=== PATIENT | female | born 2000 | race Caucasian/White ===

== ENCOUNTER → 2020-12-02 | Outpatient (CLI) | payer OTHER ==
--- NOTE | 2020-12-02 23:39 | RAD ---
INDICATION: Reason: LEFT SIDED BACK PAIN WITH SCIATICA / Spl. Instructions: / History: COMPARISON: None. IMPRESSION: Lumbar spine: 3 views obtained. Mild retrolisthesis of L4 on 5. Early degenerative changes the spine with osteophyte formation at the vertebral body endplates as well as facet hypertrophy. No acute frac ture mild scoliotic curvature of the spine. Electronically signed by: Robin Cabrera MD (12/02/2020 11:37 PM) [id number]
== END ==
LOC: RAD 10:38
PROVIDERS: ATTEND Family Medicine
DX: M47.816 Spondylosis without myelopathy or radiculopathy, lumbar region (principal); M25.78 Osteophyte, vertebrae
CPT/HCPCS: 72100

== ENCOUNTER → 2021-01-02 | Outpatient (CLI) | payer OTHER ==
--- NOTE | 2021-01-02 16:02 | KCIC ---
MR LUMBAR SPINE WO [id number] Date: 01/02/2021 3:23 PM Indication: Acute Left sided back pain w/sciatica. LBP 1-1.5 months, LLE pain, no known recent injur y. Comparison: Lumbar spine radiograph 12/02/2020. Technique: Multi-planar multi-weighted magnetic resonance imaging of the lumbar spine was performed w ithout intravenous contrast using the standard lumbar spine protocol. FINDINGS: Straightening of the lumbar lordosis. No acute fracture. Degenerative disc desiccation and disc space height loss at L3-4, L4-5, and L5-S1. Fatty degenerative endplate changes at L4-5. The conus terminates at a normal level. No abnormal signal is seen within the visualized distal spina l cord. No clumping of intrathecal nerve roots. No soft tissue abnormality in the visualized abdomen or pelvis. T12-L1: No disc bulge. No facet arthropathy. No significant spinal stenosis or neural foraminal narro wing. L1-L2: No disc bulge. No facet arthropathy. No significant spinal stenosis or neural foraminal narrow ing. L2-L3: No disc bulge. No facet arthropathy. No significant spinal stenosis or neural foraminal narrow ing. L3-L4: Disc bulge with annular tear. No facet arthropathy. No significant spinal stenosis or neural f oraminal narrowing. L4-L5: Disc bulge with annular tear and large central and right paracentral protrusion. Prominent mary priyanka epidural fat. Severe narrowing of the thecal sac and lateral recesses. Mild bilateral neural fora imani narrowing. Mild facet arthropathy. L5-S1: Disc bulge. Moderate right and mild left facet arthropathy. Mild spinal canal stenosis and lef t lateral recess narrowing. Mild bilateral neural foraminal narrowing. IMPRESSION: Severe narrowing of the thecal sac and lateral recesses at L4-5 due to a large disc protrusion. Electronically signed by: Jarod Serrano MD (01/02/2021 3:59 PM) [id number]
== END ==
LOC: KCIC MRI 15:08
PROVIDERS: ATTEND Family Medicine
DX: M47.817 Spondylosis without myelopathy or radiculopathy, lumbosacral region (principal); M48.07 Spinal stenosis, lumbosacral region
CPT/HCPCS: 72148

== ENCOUNTER → 2021-02-01 | Outpatient (CLI) | payer OTHER ==
[~2021-02-01] MED LIST: ACET500T68 PO; DIPH25CA58 PO; DOCU-109 PO; HYDR-2761 PO; IBUP-1027 PO; LORA10TA3 PO; TIZA4TAB2 PO; VENL75TA PO
[2021-02-01 10:04] LABS: BASO % 1 % (0-3); EOS # 0.2 x10^3/uL (0.0-0.7); EOS % 3 % (0-3); HEMATOCRIT 41.4 % (36.0-47.0); HEMOGLOBIN 14.2 g/dL (12.0-15.5); LYMPH # 1.9 x10^3/uL (1.0-4.8); LYMPH % 32 % (24-48); MEAN CORPUSCULAR HEMOGLOBIN 32 pg (25-35); MEAN CORPUSCULAR HGB CONC 34 g/dL (31-37); MEAN CORPUSCULAR VOLUME 92 fL (79-100); MONO # 0.4 x10^3/uL (0.0-1.1); MONO % 6 % (0-9); NEUT # 3.4 x10^3/uL (1.8-7.7); NEUT % 58 % (31-73); PLATELET COUNT 335 x10^3/uL (140-400); RED BLOOD COUNT 4.51 x10^6/uL (3.50-5.40); WHITE BLOOD COUNT 5.9 x10^3/uL (4.0-11.0)
[2021-02-01 10:08] LABS: ALBUMIN/GLOBULIN RATIO 1.2 (1.0-1.7); CALCIUM 9.2 mg/dL (8.5-10.1); CREATININE 0.9 mg/dL (0.6-1.0); GFR 78.3; POTASSIUM 4.6 mmol/L (3.5-5.1); TOTAL BILIRUBIN 0.2 mg/dL (0.2-1.0); TOTAL PROTEIN 7.4 g/dL (6.4-8.2)
--- NOTE | 2021-02-05 20:18 | HP ---
ADMIT DATE: 02/01/2021 PREOP HISTORY AND PHYSICAL HISTORY OF PRESENT ILLNESS: The patient is a pleasant 20-year-old who is having difficulty with low back pain that radiates into her left posterior thigh to the knee. She said the pain can also radiate down her left leg as well. She notes pins and needles sensation in her left foot virtually all of the time. The problem started spontaneously about 2 months ago and was extremely severe. It has improved slightly since that time. Going from sitting to standing causes sharp pain for her. Standing too long, is painful. She says ice helps and changing positions also helps. Lying down gives her some relief. Her pain initially was 8-9/10 and now is a constant 3/10. Activity increases her pain level. She has had two Medrol Dosepak, which helped slightly. She tried physical therapy, which markedly increased her pain after one visit and she stopped. Weakness is not a problem for her. The numbness in her left foot is constant. There are no bowel or bladder issues. CURRENT MEDICATIONS: Tylenol, Benadryl, venlafaxine, tizanidine, ibuprofen. PAST MEDICAL HISTORY: No prior medical history. PAST SURGICAL HISTORY: No previous surgeries documented. FAMILY HISTORY: Diabetes, headaches. 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 Does not smoke. Drinks alcohol 1-2 times per month. ALLERGIES: No known drug allergies. REVIEW OF SYSTEMS: A 12-point review of systems was performed and is noncontributory except that mentioned above. PHYSICAL EXAMINATION: GENERAL: Alert, pleasant, in no acute distress. HEENT: Normocephalic, atraumatic. SKIN: Warm and dry. MUSCULOSKELETAL: Lumbar paraspinal muscle bulk is normal, restricted range of motion of the lumbar spine, mild tenderness of the lower lumbar spine with palpation, normal range of motion of the lower extremities bilaterally. EXTREMITIES: No clubbing, cyanosis or edema. NEUROLOGIC: Alert and oriented x3. Strength is 5/5 in the lower extremities. Sensory is intact in the lower extremities except for a diffuse decreased sensation involving her left foot, Reflexes were present and symmetric in the lower extremities bilaterally, positive straight leg raising on the left, negative straight leg raising on the right, normal gait. IMAGING: I reviewed a lumbar MRI scan from 01/02/2021. On that study, the principal abnormality is at L4-L5 where there was a very large central disk protrusion, which narrows the lateral recesses, right greater than left. ASSESSMENT AND PLAN: She has a very large disc protrusion with a left lumbar radiculopathy. At this point, I feel the most prudent course would be to operate and performed bilateral aggressive hemilaminotomy for disk removal. I did discuss this with her. I explained there was a risk of injury to the nerves for bowel and bladder and then I would do everything possible to avoid that problem. I feel that she has failed extensive conservative measures and based on the amount of stenosis related to the large disk herniation the most prudent thing would be to remove the disk. I discussed all aspects of the surgery with her. She understands. She would like to go ahead. We are going to make the arrangements. NILDA DR: Chantal TID: [id number]
== END ==
LOC: SURGPAT 09:00
PROVIDERS: ATTEND Neurological Surgery
DX: Z01.812 Encounter for preprocedural laboratory examination (principal); M51.16 Intervertebral disc disorders with radiculopathy, lumbar region
CPT/HCPCS: 36415; 80053; 85025; 87641

== ENCOUNTER 2021-02-06 07:16 | Day surgery (SDC) | payer OTHER ==
[2021-02-01 09:33] VITALS: BP 137/88
[~2021-02-06] VITALS: Ht 177.8 cm; Wt 95.6 kg
[~2021-02-06 07:16] MED LIST changes: +BUPIVACAINE-EPI 0.5%-1:200000 MPF 30 ML VIAL. ONE; +DEXAMETHASONE SOD PHOS 4 MG/ML VIAL ONE; -DOCU-109 PO; +GELATIN SPONGE SIZE 100. ONE; -HYDR-2761 PO; +HYDROmorphone 2 MG/ML VIAL IVP PRN; +IV RINGERS,LACTATED 1000ML 1,000 ML IV SCH; +KETOROLAC 60 MG/2 ML VIAL. ONE; +LIDOCAINE 2% PF 5 ML VIAL. ONE; +MORPHINE SULFATE 2 MG/ML INJ. IVP PRN; +ONDANSETRON PF 4 MG/2 ML VIAL. ONE; +PROCHLORPERAZINE 10 MG/2 ML VIAL. IVP PRN; +PROPOFOL 10 MG/ML (20ML) VIAL. IV ONE; +ROCURONIUM 50 MG/5 ML VIAL. ONE; +THROMBIN TOPICAL 20,000 UNIT SPRAY.SYRN KIT TP ONE; +fentaNYL PF VIAL 100 MCG/2 ML VIAL IVP PRN
[2021-02-06] MEDS ORDERED: SUCCINYLCHOLINE 200 MG/10 ML VIAL. ONE (08:15)
[2021-02-06] MEDS ORDERED: MIDAZOLAM HCL/PF 2 MG/2 ML VIAL. ONE (08:16)
[2021-02-06] MEDS ORDERED: fentaNYL PF VIAL 100 MCG/2 ML VIAL ONE (08:16)
[2021-02-06] MEDS ORDERED: REMIFENTANIL 2 MG VIAL. IV ONE (08:17)
--- NOTE | 2021-02-06 09:12 | HP ---
ADMIT DATE: 02/06/2021 PREOP HISTORY AND PHYSICAL HISTORY OF PRESENT ILLNESS: The patient is a pleasant 20-year-old who is having difficulty with low back pain that radiates into her left posterior thigh to the knee. She said the pain can also radiate down her left leg as well. She notes pins and needles sensation in her left foot virtually all of the time. The problem started spontaneously about 2 months ago and was extremely severe. It has improved slightly since that time. Going from sitting to standing causes sharp pain for her. Standing too long, is painful. She says ice helps and changing positions also helps. Lying down gives her some relief. Her pain initially was 8-9/10 and now is a constant 3/10. Activity increases her pain level. She has had two Medrol Dosepak, which helped slightly. She tried physical therapy, which markedly increased her pain after one visit and she stopped. Weakness is not a problem for her. The numbness in her left foot is constant. There are no bowel or bladder issues. CURRENT MEDICATIONS: Tylenol, Benadryl, venlafaxine, tizanidine, ibuprofen. PAST MEDICAL HISTORY: No prior medical history. PAST SURGICAL HISTORY: No previous surgeries documented. FAMILY HISTORY: Diabetes, headaches. 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 Does not smoke. Drinks alcohol 1-2 times per month. ALLERGIES: No known drug allergies. REVIEW OF SYSTEMS: A 12-point review of systems was performed and is noncontributory except that mentioned above. PHYSICAL EXAMINATION: GENERAL: Alert, pleasant, in no acute distress. HEENT: Normocephalic, atraumatic. SKIN: Warm and dry. MUSCULOSKELETAL: Lumbar paraspinal muscle bulk is normal, restricted range of motion of the lumbar spine, mild tenderness of the lower lumbar spine with palpation, normal range of motion of the lower extremities bilaterally. EXTREMITIES: No clubbing, cyanosis or edema. NEUROLOGIC: Alert and oriented x3. Strength is 5/5 in the lower extremities. Sensory is intact in the lower extremities except for a diffuse decreased sensation involving her left foot, Reflexes were present and symmetric in the lower extremities bilaterally, positive straight leg raising on the left, negative straight leg raising on the right, normal gait. IMAGING: I reviewed a lumbar MRI scan from 01/02/2021. On that study, the principal abnormality is at L4-L5 where there was a very large central disk protrusion, which narrows the lateral recesses, right greater than left. ASSESSMENT AND PLAN: She has a very large disc protrusion with a left lumbar radiculopathy. At this point, I feel the most prudent course would be to operate and performed bilateral aggressive hemilaminotomy for disk removal. I did discuss this with her. I explained there was a risk of injury to the nerves for bowel and bladder and then I would do everything possible to avoid that problem. I feel that she has failed extensive conservative measures and based on the amount of stenosis related to the large disk herniation the most prudent thing would be to remove the disk. I discussed all aspects of the surgery with her. She understands. She would like to go ahead. We are going to make the arrangements. NILDA DR: Chantal TID: [id number]
[2021-02-06] MEDS ORDERED: DESFLURANE > 120 MINUTES IH ONE (09:15)
[2021-02-06] MEDS ORDERED: PROPOFOL 50 ML IV ONE ×3 (10:17→11:08)
[2021-02-06] MEDS ORDERED: NEOSTIGMINE METHYLSULFATE 5 MG/5 ML SYRINGE. ONE (11:09)
[2021-02-06] MEDS ORDERED: GLYCOPYRROLATE 1 MG/5 ML VIAL. ONE (11:42)
[2021-02-06] MEDS ORDERED: HYDR-2761 PO (11:53)
[2021-02-06] MEDS ORDERED: DOCU-109 PO (11:53)
--- NOTE | 2021-02-06 11:57 | DISCH ---
DISCHARGE INSTRUCTIONS Condition on Discharge Condition on Discharge: Stable Activity After Discharge Activity Instructions for Disc: Activity as tolerated, Avoid exertion Other activity instructions: no driving for a week Bathing Instructions: Shower-keep dressing dry, No Tub Bath until see Lifting Instructions after Dis: No heavy lifting, No pulling or pushing, Do not lift >10 pounds Diet after Discharge Diet after Discharge: Regular Wound Incision Care Wound/Incision Care: Ice to area for comfort Other wound/incision instructi: may remove dressing in 48 hours if dry , no soaking Contacting the after DC Call your doctor for: Concerns you may have Follow-Up Follow up with: Dr. Gracia's nurse in 2 weeks [phone] LACHO GRACIA MD Feb 06, 2021 11:57
[2021-02-06] MEDS ORDERED: HYDROcodone/APAP 5/325MG 1 TAB TABLET PO ONE (12:45)
[2021-02-06 12:46] VITALS: BP 133/86
--- NOTE | 2021-02-06 13:00 | OP ---
DATE OF SURGERY: 02/06/2021 PREOPERATIVE DIAGNOSIS: Large herniated lumbar disc, L4-L5 with severe left lumbar radiculopathy. POSTOPERATIVE DIAGNOSIS: Large herniated lumbar disc, L4-L5 with severe left lumbar radiculopathy. OPERATION PERFORMED: Bilateral hemilaminotomies with decompression of dura and nerve root and microdiscectomies, L4-L5. The operation was done with EMG monitoring, SSEP monitoring, fluoroscopy, microscopic dissection. SPECIMEN: Disc and decompression. SURGEON: Jonny Harding M.D. BUCKLE ATTACHER: Nikki Starr APRN, assisted with the surgery. She assisted with the exposure, the discectomy as well as the closure. OPERATIVE INDICATIONS: The patient is a pleasant 20-year-old who developed severe intractable back and left leg pain, which was disabling for her. She tried physical therapy, which made her much worse. She did have two Medrol Dosepaks, which she said helped her a little bit. Weakness was not a problem. There was a constant numbness in her left foot. There were no bowel or bladder issues. On imaging studies, there was a large disc herniation at L4-L5, which was a central but did compress both sides. In fact, the right side slightly worse than the left. I recommended lumbar microsurgery. I spoke with her about the surgery, the risks, technique and expected postoperative course. I spoke about injury to the nerves for bowel and bladder control. I spoke with her about the risk of infection, the risk of anesthesia, she understood and she wished to go ahead. DESCRIPTION OF PROCEDURE: Following general endotracheal anesthesia, the patient was positioned prone on the Riaz table. Her lumbar region prepped and draped in the standard fashion. SORAYA hose and AV impulse boots were applied for DVT prophylaxis. The microscope was draped, fluoroscopy was draped and brought in the field and monitoring was established. Ancef 2 grams was given less than one hour prior to initiation of surgery. Using fluoroscopic guidance, an incision was made directly over the L4-L5 interspace. I dissected down through skin and subcutaneous tissue, reflected the paraspinal muscles and placed a [place] microdisk retractor. I brought in the microscope and the remainder of surgery done with microscope using microscopic technique. I burred down a generous hemilaminotomy with a high-speed air drill and then gently peeled down and trimmed from medial to lateral of the ligamentum flavum. Even using the drill, there was intermittent discharging of the L5 root as seen on the EMG. As I worked, I performed a partial foraminotomy and had a generous exposure of the dura and the exiting root. I gently passed the blunt hook beneath the root and gently retracted. Again, there was some firing. I entered into the disc space and I worked to perform discectomy and tried to tease back and remove disc material and as I worked, the nerve became much freer; however, was unable to remove any large fragments from this approach. We then removed multiple smaller fragments and had a generous amount of disc removed. I then went to the contralateral side with the same exposure. Interestingly, even though this site was asymptomatic, it was very irritable on the right side. I again peeled away thickened ligamentum flavum. I did again perform a partial foraminotomy. I gently retracted the root medially. The disc was much more apparent. I incised the ligament annulus as I done on the other side and teased back and removed first a large subligamentous disc fragment, which completely decompressed the region. I entered the disc space and removed further disc, which I also removed some of the more central disc material. As I worked, the region became very well decompressed. Following this then I explored carefully on this side and assured myself there were no retained fragments. Hemostasis was excellent. I irrigated with antibiotic solution and then removed the retractor from this. I went back to the left side, explored carefully and assured myself that the root was very free. There were no retained fragments. I irrigated copiously. I closed the wound in layers with absorbable suture. The skin was closed with 4-0 subcuticular stitch. I felt the surgery went very well. PEDRITO DR: Rupa TID: [id number] MEL
--- NOTE | 2021-02-08 18:23 | PATHOLOGY ---
[facility] Accession Number: [id number] . 01 Material submitted: . vertebral column - LUMBAR DISC AND DECOMPRESSION. Modifiers: LUMBAR . 01 Clinical history: . LUMBAR HERNIATED DISC WITH RADICULOPATHY LUMBAR MICRODISCECTOMY L4-5 . 02 Diagnosis: Segments of fibrocartilaginous and skeletal muscle tissue and bone, lumbar disc and decompression: - Degenerative changes of fibrocartilaginous tissue. LBQ 02/08/2021 1731 Local . 02 Comment: There is no evidence of an acute inflammatory process or malignancy. (JPM/db; 02/08/2021) . 02 Electronically signed: . Houston Castellano MD, Pathologist NPI- [id number] . 01 Gross description: . The specimen is received in formalin, labeled "Carissa Cohn and #1 lumbar disc and decompression". It consists of multiple vega-white, irregular soft and bony tissue fragments measuring 5.5 x 4.5 x 1.7 cm in aggregate. Correspondence Dictator sections are submitted between sponges in A1 following decalcification. (MRF; 02/07/2021) MFE/MFE 02/07/2021 1526 Local . 02 Pathologist provided ICD-10: M51.36 . 02 CPT . 368251, [id number] Specimen Comment: A courtesy copy of this report has been sent to [phone], [phone] Specimen Comment: [id number] Specimen Comment: Report sent to / DR SWEET Performed at: 01 [facility] [address], [place], [place] [id number] MD Charles Ramos MD Phone: [phone] Performed at: 02 [facility] [address], [place] [id number] MD Houston Castellano MD Phone: [phone]
== END 2021-02-06 13:55 | disposition home or self-care (01) ==
LOC: SURG 07:16
PROVIDERS: ATTEND Neurological Surgery
DX: M51.16 Intervertebral disc disorders with radiculopathy, lumbar region (principal); F41.9 Anxiety disorder, unspecified; F32.9 Major depressive disorder, single episode, unspecified; Z79.899 Other long term (current) drug therapy; Z98.890 Other specified postprocedural states
CPT/HCPCS: 63030; 81025; 88304; 88311; A4213; A4364; A4930; A6254; A6258; J0330; J0690; J1100; J1885; J2250; J2405; J2704; J2710; J3010; J3490; 76000; A4222